=== PATIENT | female | born 1990 | race Caucasian/White ===

== ENCOUNTER 2017-03-20 14:29 | Outpatient (CLI) | payer MEDICAID ==
[~2017-03-20] VITALS: Ht 152.4 cm; Wt 59.5 kg
[~2017-03-20 14:29] MED LIST: FERR27TA; PREN1TAB49
[2017-03-20 14:51] VITALS: BP 103/63; PULSE 99; RESP 18; Ht 152.4 cm; Wt 59.5 kg
--- NOTE | 2017-03-20 15:38 | RADRPT ---
PROCEDURE: US OB biophysical profile. CLINICAL INDICATION: Decreased movements. Pelvic pain. TECHNIQUE: Multiple sonographic images of the pelvis were obtained. The images were reviewed on a PACS workstation. COMPARISON: None FINDINGS: There is a viable intrauterine gestation. There is a normal amount of amniotic fluid with an FÉLIX = 13.5 cm. Cardiac activity is present with 141 beats per minute. The placenta is right fundal. No evidence of placenta previa or abruption. Biophysical profile: movement 2/2 tone 2/2. breathing 2/2 FÉLIX 2/2 Total 12/19 IMPRESSION: Normal biophysical profile. Estimated gestational age: 34 weeks and 1 day RPTAT:AAJJ Physician Samantha Date Time Electronically viewed and signed by Physician Samantha on 03/20/2017 15:38 /
--- NOTE | 2017-03-20 15:41 | RADRPT ---
PROCEDURE: US OB. CLINICAL INDICATION: labor. TECHNIQUE: Multiple sonographic images of the pelvis were obtained. The images were reviewed on a PACS workstation. COMPARISON: No prior studies are available for comparison. FINDINGS: There is a single viable intrauterine gestation. Cardiac activity is present with 148 beats per min qagan tayagungin. Measurements were made in order to determine age. The results are as follows: BPD =8.4 cm HC =30.8 cm AC =29.7 cm FL =6.7 cm. Estimated gestational age of approximately 34 weeks and 0 days. The EFW = 1306 g . Limited by positioning. Visualized structures are normal. The placenta is right fundal. There is no evidence for an abruption or placenta previa. There is a normal amount of amniotic fluid with an FÉLIX = 13.5. IMPRESSION: Single viable intrauterine gestation of approximately 34 weeks and 0 days. RPTAT:AAJJ Physician Samantha Date Time Electronically viewed and signed by Physician Samantha on 03/20/2017 15:40 /
--- NOTE | 2017-03-20 15:41 | RADRPT ---
PROCEDURE: US OB. CLINICAL INDICATION: labor. TECHNIQUE: Multiple sonographic images of the pelvis were obtained. The images were reviewed on a PACS workstation. COMPARISON: No prior studies are available for comparison. FINDINGS: There is a single viable intrauterine gestation. Cardiac activity is present with 148 beats per min mi'kmaq. Measurements were made in order to determine age. The results are as follows: BPD =8.4 cm HC =30.8 cm AC =29.7 cm FL =6.7 cm. Estimated gestational age of approximately 34 weeks and 0 days. The EFW = 1306 g . Limited by positioning. Visualized structures are normal. The placenta is right fundal. There is no evidence for an abruption or placenta previa. There is a normal amount of amniotic fluid with an FÉLIX = 13.5. IMPRESSION: Single viable intrauterine gestation of approximately 34 weeks and 0 days. RPTAT:AAJJ Physician Samantha Date Time Electronically viewed and signed by Physician Samantha on 03/20/2017 15:40 /
--- NOTE | 2017-03-20 15:41 | RADRPT ---
PROCEDURE: US OB. CLINICAL INDICATION: labor. TECHNIQUE: Multiple sonographic images of the pelvis were obtained. The images were reviewed on a PACS workstation. COMPARISON: No prior studies are available for comparison. FINDINGS: There is a single viable intrauterine gestation. Cardiac activity is present with 148 beats per min zuni. Measurements were made in order to determine age. The results are as follows: BPD =8.4 cm HC =30.8 cm AC =29.7 cm FL =6.7 cm. Estimated gestational age of approximately 34 weeks and 0 days. The EFW = 1306 g . Limited by positioning. Visualized structures are normal. The placenta is right fundal. There is no evidence for an abruption or placenta previa. There is a normal amount of amniotic fluid with an FÉLIX = 13.5. IMPRESSION: Single viable intrauterine gestation of approximately 34 weeks and 0 days. RPTAT:AAJJ Physician Samantha Date Time Electronically viewed and signed by Physician Samantha on 03/20/2017 15:40 /
--- NOTE | 2017-03-20 15:55 | PN ---
Triage Information Date/Time Reason for visit: Abd/pelvic pain Weeks of Gestation 34 weeks 1 day /Para Diabetes: none Hypertention: none Objective Vital Signs Date Time Temp Pulse Resp B/P Pulse Ox O2 Delivery O2 Flow Rate FiO2 03/20/17 14:51 99.1 99 18 103/63 97 Room Air Heart Rate: 130's Contractions: None Exam Patient came to triage with complaint of right lower quadrant pain since patient had appendectomy at age 11 the alternative cause of right lower quadrant pain was possible round ligament syndrome, after resting in triage unit pain disappeared patient discharged home with follow-up recommendation at [facility] Results/Medications Result Diagram: 03/20/17 1522 Results 24 hrs Laboratory Tests Test 03/20/17 15:22 White Blood Count 10.9 H Red Blood Count 3.49 L Hemoglobin 8.5 L Hematocrit 26.9 L Mean Corpuscular Volume 77.1 L Mean Corpuscular Hemoglobin 24.4 L Mean Corpuscular Hemoglobin Concent 31.6 L Red Cell Distribution Width 14.4 Platelet Count 290 Mean Platelet Volume 11.0 H Neutrophils % 72.9 Lymphocytes % 17.5 Monocytes % 6.4 Eosinophils % 2.0 Basophils % 0.4 Nucleated Red Blood Cells % 0.0 Neutrophils # 7.9 H Lymphocytes # 1.9 Monocytes # 0.7 Eosinophils # 0.2 Basophils # 0.0 Nucleated Red Blood Cells # 0.0 Disposition: Discharge ADNERSON RICHARDS MD Mar 20, 2017 15:55
--- NOTE | 2017-03-20 15:55 | PN ---
Triage Information Date/Time Reason for visit: Abd/pelvic pain Weeks of Gestation 34 weeks 1 day /Para Diabetes: none Hypertention: none Objective Vital Signs Date Time Temp Pulse Resp B/P Pulse Ox O2 Delivery O2 Flow Rate FiO2 03/20/17 14:51 99.1 99 18 103/63 97 Room Air Heart Rate: 130's Contractions: None Exam Patient came to triage with complaint of right lower quadrant pain since patient had appendectomy at age 11 the alternative cause of right lower quadrant pain was possible round ligament syndrome, after resting in triage unit pain disappeared patient discharged home with follow-up recommendation at [facility] Results/Medications Result Diagram: 03/20/17 1522 Results 24 hrs Laboratory Tests Test 03/20/17 15:22 White Blood Count 10.9 H Red Blood Count 3.49 L Hemoglobin 8.5 L Hematocrit 26.9 L Mean Corpuscular Volume 77.1 L Mean Corpuscular Hemoglobin 24.4 L Mean Corpuscular Hemoglobin Concent 31.6 L Red Cell Distribution Width 14.4 Platelet Count 290 Mean Platelet Volume 11.0 H Neutrophils % 72.9 Lymphocytes % 17.5 Monocytes % 6.4 Eosinophils % 2.0 Basophils % 0.4 Nucleated Red Blood Cells % 0.0 Neutrophils # 7.9 H Lymphocytes # 1.9 Monocytes # 0.7 Eosinophils # 0.2 Basophils # 0.0 Nucleated Red Blood Cells # 0.0 Disposition: Discharge ANDERSON RICHARDS MD Mar 20, 2017 15:55
--- NOTE | 2017-03-20 15:56 | TRIAGE ---
OB Triage Datetime Report Generated by CPN: 03/20/2017 15:56 Datetime: 03/20/2017 15:45 Stage of : OB Triage Maternal Assessment Level of Consciousness: Fully Conscious Labor Evaluation Frequency: 1UC/HR Monitor Mode: External Duration (sec)2399: 60 Quality: Mild Resting Tone [place]: Relaxed Heart Rate FHR Baseline Rate: 135 Monitor Mode: External US Variability: Moderate 6-25 bpm Accelerations: 15X15 Decelerations: None Category: Category I Pain Assessment Pain Scale: 0 Pain Goal: 3 Vaginal Exam Membrane Status: Intact Vaginal Bleeding: None Datetime: 03/20/2017 15:30 Monitor Mode: External Monitor Mode: External US Datetime: 03/20/2017 14:49 Assessment Type: Triage Maternal Assessment Level of Consciousness: Fully Conscious DTR's/Clonus: DTRs 2+; No Clonus Headache: Denies Blurred Vision: No Respiratory Effort: Unlabored; Regular Rhythm; Equal Expansion Breath Sounds, Left: Clear and Equal Breath Sounds, Right: Clear and Equal Nausea/Vomiting: Denies RUQ Epigastric Pain: Denies Lower Extremities Edema: None Degree: None Upper Extremities Edema: None Degree: None Facial Edema: None Fall Risk Assessment History of Falling: (0) No Secondary Diagnosis: (0) No Ambulatory Aid: (0) Bedrest/Nurse Assist IV Therapy: (0) No Gait: (0) Normal/Bedrest/Immobile Mental Status: (0) Oriented to Own Ability Fall Score: 0 Fall Risk Score Definition: No Risk: No action required Datetime: 03/20/2017 14:48 EGA: 34.1 Datetime: 03/20/2017 14:47 Time of Arrival: 03/20/2017 14:27 Arrived By: Ambulatory Arrived From: Home Chief Complaint: PT HERE C/O RLQ ABDOMINAL PAIN Movement: Present Contractions: Denies/Absent Rupture of Membranes: Denies Vaginal Bleeding: None Vaginal Discharge: Denies Recent Sexual Intercouse: Denies Abdominal Trauma: Not Applicable Patient Complaints: None Time Provider Notified: 03/20/2017 15:04 Provider Notified: [facility] Initial Plan: CBC, BPP, EFW Datetime: 03/20/2017 14:43 Monitor Mode: External Monitor Mode: External US
== END 2017-03-20 16:05 | disposition home or self-care (01) ==
LOC: OBT 14:29 → L-D 14:29 → OBT 16:05
PROVIDERS: ATTEND Obstetrics & Gynecology
DX: O26.893 Other specified pregnancy related conditions, third trimester (principal); Z3A.34 34 weeks gestation of pregnancy; R10.31 Right lower quadrant pain
CPT/HCPCS: 36415; 76815; 76818; 85025; Z7500; G0463

== ENCOUNTER 2017-04-15 16:12 | Outpatient (CLI) | payer MEDICAID ==
[~2017-04-15] VITALS: Ht 175.3 cm; Wt 61.4 kg
[~2017-04-15 16:12] MED LIST changes: -FERR27TA
[2017-04-15 16:31] VITALS: BP 106/70; PULSE 96; RESP 19; Ht 175.3 cm; Wt 61.4 kg
[2017-04-15 16:36] LABS: URINE BLOOD (Dip) POC Negative (NEGATIVE)
--- NOTE | 2017-04-15 17:05 | RADRPT ---
PROCEDURE: Obstetrical ultrasound for biophysical profile CLINICAL INDICATION: Biophysical profile. . TECHNIQUE: Obstetrical ultrasound of the uterus for biophysical profile. Transabdominal views are obtained. COMPARISON: US PELVIS 03/20/2017 FINDINGS: Single intrauterine gestation. Presentation: Cephalic. Placenta: Anterior. No evidence of placental abruption. No evidence of placenta previa. breathing movement = 2/2 tone = 2/2 motion = 2/2 FÉLIX = 2/2 FÉLIX = 13.9 cm heart rate: 144 beats per minute IMPRESSION: Single intrauterine gestation. Biophysical profile 12/19 RPTAT: AADD .Froylan Mota MD, MD Date Time Electronically viewed and signed by .Froylan Mota MD, on 04/15/2017 17:05 .B/
--- NOTE | 2017-04-15 17:40 | CONS ---
Date/Time of Note Date/Time of Note DATE: 04/15/17 TIME: 17:26 Consultation Date/Type/Reason Admit Date/Time April 15, 2017 OB triage consult This patient is a 26 years old 3 para 1 1 living 1 who had an spontaneous vaginal delivery for her first . Her estimated date of confinement April 30, 2017 which makes her 37 weeks and 6 days today. She came to triage due to cough for about a week which is worsening with flem and vomiting. On examination she is a well-developed well-nourished at term. Her general vital signs appear to be normal with blood pressure 106/70 ,pulse rate 96, respiration 18, and temperature of 99.3 her abdomen is soft infrequent contraction heart tone is normal except . The NST is reactive with fairly good variability and occasional acceleration no decelerations. Reason for Consultation Laboratory Tests Test 04/15/17 16:36 Bedside Urine pH (LAB) 6.5 Bedside Urine Protein (LAB) 1+ Bedside Urine Glucose (UA) Negative Bedside Urine Ketones (LAB) Negative Bedside Urine Blood Negative Bedside Urine Nitrite (LAB) Negative Bedside Urine Leukocyte Esterase (L 1+ Constitutional: chills, diaphoresis, disoriented, febrile, improved, no complaints, other (As I mentioned temperature is 99.3), poor po, requiring IVF, requiring O2 Eyes: No discharge, No no complaints, No other, No pain, No redness, No visual change ENT: No bleeding, No congestion, No discharge, No dysphagia, No no complaints, No other, No pain, No sore throat Respiratory: cough (Coughing which is a tongue productive but no blood), No no complaints, No other, No pain, No pleuritic pain, No shortness of breath, No sputum, No wheezing Cardiovascular: No chest pain, No edema, No lightheadedness, No no complaints, No orthopenea, No other, No palpitations, No paroxysmal nocturnal dyspnea Gastrointestinal: vomiting (She vomited couple times mostly due to cough), No blood, No constipation, No decreased appetite, No diarrhea, No flatus, No nausea, No no complaints, No other, No pain, No passing stool Genitourinary: other (Due to lack of contractions no pelvic exam was performed) , No bleeding, No discharge, No dysuria, No flank pain, No hematuria, No no complaints Musculoskeletal: other (Slight general body ache), No back pain, No bone/joint pain, No neck pain, No no complaints, No restricted range of motion, No swelling Neurologic: No confusion, No dizziness, No focal-weakness, No headache, No no complaints, No other, No seizure, No syncope Endocrine: No dry skin, No no complaints, No other, No polydypsia, No polyuria , No temp intolerance Additional Comments . . On ultrasound study report is single intrauterine gestation placenta anterior no placenta abruption or previa amniotic fluid index is 13.9 cm her biophysical profile was 8/ Disposition; with these normal finding for her she was sent down to emergency room for further evaluation and treatment of possible upper respiratory tract infection Social History Smoking Status: Never smoker Exam/Review of Systems Vital Signs Vitals Vital Signs Date Time Temp Pulse Resp B/P Pulse Ox O2 Delivery O2 Flow Rate FiO2 04/15/17 16:31 99.3 96 19 106/70 99 Room Air Results Results 24 hrs Laboratory Tests Test 04/15/17 16:36 Bedside Urine pH (LAB) 6.5 Bedside Urine Protein (LAB) 1+ H Bedside Urine Glucose (UA) Negative Bedside Urine Ketones (LAB) Negative Bedside Urine Blood Negative Bedside Urine Nitrite (LAB) Negative Bedside Urine Leukocyte Esterase (L 1+ H RADHA GORDON MD Apr 15, 2017 17:37
[2017-04-15] MEDS ORDERED: AZIT250T94 PO (18:49)
== END 2017-04-15 17:26 | disposition home or self-care (01) ==
LOC: OBT 16:12 → L-D 16:13 → OBT 17:26
PROVIDERS: ATTEND Obstetrics & Gynecology
DX: O21.0 Mild hyperemesis gravidarum (principal); O26.893 Other specified pregnancy related conditions, third trimester; R05 Cough; Z3A.37 37 weeks gestation of pregnancy
CPT/HCPCS: 76818; 81003; Z7500; G0463

== ENCOUNTER 2017-04-15 17:32 | Emergency (ER) | payer MEDICAID ==
[~2017-04-15] VITALS: Ht 152.4 cm; Wt 61.5 kg
[2017-04-15 17:33] VITALS: Ht 152.4 cm; Wt 61.5 kg
[2017-04-15] MEDS ORDERED: AZIT250T94 PO (18:49)
--- NOTE | 2017-04-15 18:52 | ERD ---
ER Documentation Chief Complaint Chief Complaint CLEARED BY OB TRIAGE -- FLU LIKE SYMPTOMS HPI This 26-year-old female presents with a cough and congestion worsening over the last week of productive mucus. She denies fevers. She denies any chest pain or shortness of breath. She is 37 weeks and was cleared by labor and delivery. She denies abdominal pain or vaginal bleeding. ROS All systems reviewed and are negative except as per history of present illness. Medications Home Meds Active Scripts Azithromycin* (Zithromax*) 250 Mg Tablet, 250 MG PO .ZPACK DIRECTED, #6 TAB TAKE 500 MG (2 TABS) THE FIRST DAY THEN 250 MG (1 TAB) DAYS 2-5 Prov:FIORELLA YOU MD 04/15/17 Reported Medications Vits W-Ca,Fe,Fa(<1MG) () 1 Tab Tablet 04/28/10 Allergies Allergies: Coded Allergies: No Known Drug Allergy (Verified Allergy, Unknown, 04/15/17) Uncoded Allergies: NOT KNOWN ALLERGIES (Allergy, Unknown, 04/28/10) Physical Exam Vitals Vital Signs Date Time Temp Pulse Resp B/P Pulse Ox O2 Delivery O2 Flow Rate FiO2 04/15/17 17:33 98.4 98 17 106/68 100 Physical Exam Const: [] Alert, [id number]. Head: Atraumatic Eyes: Normal Conjunctiva ENT: Normal External Ears, Nose and Mouth. TMs and oropharynx normal. Neck: Full range of motion..~ No meningismus. Resp: Clear to auscultation bilaterally Cardio: Regular rate and rhythm, no murmurs Abd: Soft, non tender, non distended. Normal bowel sounds Skin: No petechiae or rashes Back: No midline or flank tenderness Ext: No cyanosis, or edema Neur: Awake and alert Psych: Normal Mood and Affect Procedures/MDM Patient presents with worsening productive cough over the last week. There is no signs of hypoxemia or respiratory distress. Given the worsening productive cough, recommendations for [id number] cough syrup and Tylenol. There is no complications of appreciated. She will discharged home with primary care follow-up and return precautions. The patient was stable with no new complaints during the ER course. Clinically, there is no current evidence to suggest meningitis, sepsis, acute abdomen, pneumonia, acute coronary syndrome , pulmonary embolism, or any other emergent condition appearing to require further evaluation or hospitalization. The patient should certainly return for any new or worsening symptoms per the aftercare instructions. They should otherwise follow-up with her primary care doctor for reevaluation this week. Departure Diagnosis: Primary Impression: Upper respiratory infection URI type: unspecified URI Qualified Code: J06.9 - Upper respiratory tract infection, unspecified type Condition: Stable Patient Instructions: Bronchitis, Antiobiotic Treatment (Adult) Additional Instructions: Okay to take Tylenol for pain. Recheck for new or worsening symptoms or primary care doctor. FIORELLA YOU MD Apr 15, 2017 18:52
== END 2017-04-15 18:54 | disposition home or self-care (01) ==
LOC: FTE 17:32
DX: O99.513 Diseases of the respiratory system complicating pregnancy, third trimester (principal); J06.9 Acute upper respiratory infection, unspecified; Z3A.37 37 weeks gestation of pregnancy
CPT/HCPCS: 99283

== ENCOUNTER 2017-05-02 13:10 | Inpatient (IN) | payer MEDICAID ==
[~2017-05-02] VITALS: Ht 152.4 cm; Wt 62.9 kg
[~2017-05-02 13:10] MED LIST changes: +AZIT250T94 PO
[2017-05-02] MEDS: LACTATED RINGER'S 1,000 ML IV SCH ×4 (13:30→22:28)
[2017-05-02 13:46] VITALS: Ht 152.4 cm; Wt 62.9 kg
[2017-05-02 13:47] VITALS: BP 115/70; PULSE 129; RESP 20
[2017-05-02] MEDS ORDERED: CARBOPROST 250 MCG INJ IM PRN (14:00)
[2017-05-02] MEDS ORDERED: OXYTOCIN 30 UNITS/LR 500 ML IV SCH ×5 (14:00→16:30)
[2017-05-02] MEDS ORDERED: MISOPROSTOL 200 MCG TAB PR PRN (14:00)
[2017-05-02] MEDS ORDERED: HYDROCODONE/APAP (5/325) TAB PO PRN (14:00)
[2017-05-02] MEDS ORDERED: OXYTOCIN 30 UNITS/LR 500 ML IV PRN (14:00)
[2017-05-02] MEDS ORDERED: AZITHROMYCIN 500MG/NS (PMX) 250 ML IVPB ONE (14:00)
[2017-05-02] MEDS ORDERED: AMPICILLIN 2 GM/NS (PMX) 100 ML IV ONE (14:00)
[2017-05-02] MEDS ORDERED: BUTORPHANOL 2 MG INJ IV PRN ×2 (14:00)
[2017-05-02] MEDS ORDERED: IBUPROFEN 600 MG TAB PO PRN (14:00)
[2017-05-02] MEDS ORDERED: LIDOCAINE 1% (MPF) 30 ML INJ INJ PRN (14:00)
[2017-05-02] MEDS ORDERED: METHYLERGONOVINE 0.2 MG INJ IM PRN (14:00)
[2017-05-02 14:26] LABS: ABNORMAL IP MESSAGE 1; BASOPHILS % 0.3 % (0.0-2.0); EOSINOPHILS % 0.5 % (0.0-7.0); HEMATOCRIT 29.1 % (37.0-47.0); HEMOGLOBIN 9.1 g/dl (12.0-16.0); LYMPHOCYTES # 0.5 10^3/ul (0.8-2.9); LYMPHOCYTES % 6.2 % (15.0-51.0); MEAN CORPUSCULAR HEMOGLOBIN 22.2 pg (29.0-33.0); MEAN CORPUSCULAR HGB CONC 31.3 g/dl (32.0-37.0); MEAN PLATELET VOLUME 11.5 fl (7.4-10.4); MONOCYTE # 0.7 10^3/ul (0.3-0.9); MONOCYTES % 7.5 % (0.0-11.0); NEUTROPHIL # 7.3 10^3/ul (1.6-7.5); NEUTROPHILS % 83.9 % (39.0-77.0); PLATELET COUNT 240 10^3/UL (140-415); RED CELL DISTRIBUTION WIDTH 17.6 % (11.5-14.5); WHITE BLOOD COUNT 8.7 10^3/ul (4.8-10.8)
--- NOTE | 2017-05-02 14:36 | TRIAGE ---
OB Triage Datetime Report Generated by CPN: 05/02/2017 14:36 Datetime: 05/02/2017 14:31 Labor Evaluation Frequency: irreg Monitor Mode: External Duration (sec)2399: 50-100 Quality: Moderate Pattern: Normal: <= 5 Contractions in 10 Minutes Resting Tone [place]: Relaxed Heart Rate FHR Baseline Rate: 155 Monitor Mode: External US Variability: Moderate 6-25 bpm Accelerations: 15X15 Decelerations: Late Category: Category I Datetime: 05/02/2017 14:22 Membrane Status: Meconium Datetime: 05/02/2017 13:30 Stage of : OB Triage Assessment Type: Triage Maternal Assessment Level of Consciousness: Fully Conscious DTR's/Clonus: DTRs 2+; No Clonus Headache: Denies Blurred Vision: No Respiratory Effort: Unlabored; Regular Rhythm; Equal Expansion Breath Sounds, Left: Clear and Equal Breath Sounds, Right: Clear and Equal Nausea/Vomiting: Denies RUQ Epigastric Pain: Denies Lower Extremities Edema: None Degree: None Upper Extremities Edema: None Degree: None Facial Edema: None Temperature Route: Axillary Fall Risk Assessment History of Falling: (0) No Secondary Diagnosis: (0) No Ambulatory Aid: (0) Bedrest/Nurse Assist IV Therapy: (0) No Gait: (0) Normal/Bedrest/Immobile Mental Status: (0) Oriented to Own Ability Fall Score: 0 Fall Risk Score Definition: No Risk: No action required Datetime: 05/02/2017 13:20 Vaginal Exam Dilatation (cms): 1.0 Effacement (%): 70 Station: -4 Exam By: oGBODU Membrane Status: Meconium Membranes Rupture Method: Spontaneous Amniotic Fluid Color: Light Meconium Amniotic Fluid Amount: Small Vaginal Bleeding: Normal Show Cervix, Consistency: Soft Presentation 'A': Cephalic Datetime: 05/01/2017 13:52 Time of Arrival: 05/02/2017 13:04 EGA: 40.2 Arrived By: Ambulatory Arrived From: Home Chief Complaint: SROM AT 1230PM Movement: Present Contractions: Irregular Rupture of Membranes: Ruptured Vaginal Bleeding: None Vaginal Discharge: Denies Recent Sexual Intercouse: Denies Abdominal Trauma: Not Applicable Time Provider Notified: 05/02/2017 13:30 Provider Notified: dR. Marquez Initial Plan: SVE, Datetime: 04/15/2017 17:22 Stage of : OB Triage Maternal Assessment Level of Consciousness: Fully Conscious DTR's/Clonus: DTRs 1+ Headache: Denies Breath Sounds, Left: Clear and Equal Breath Sounds, Right: Clear and Equal Nausea/Vomiting: Denies RUQ Epigastric Pain: Denies Labor Evaluation Frequency: NONE Monitor Mode: External Resting Tone [place]: Relaxed Heart Rate FHR Baseline Rate: 135 Variability: Moderate 6-25 bpm Accelerations: 15X15 Decelerations: None Category: Category I Pain Assessment Pain Scale: 0 Pain Presence: None/Denies Pain Type: N/A Pain Goal: 3 Membrane Status: Intact Datetime: 04/15/2017 17:18 Comments: NST DONE AND REACTIVE BPP 818 FÉLIX 13.9CM VTX Datetime: 04/15/2017 16:49 Maternal Assessment Level of Consciousness: Fully Conscious DTR's/Clonus: DTRs 1+ Headache: Denies Blurred Vision: No Respiratory Effort: Unlabored Breath Sounds, Left: Clear and Equal Breath Sounds, Right: Clear and Equal Nausea/Vomiting: Denies RUQ Epigastric Pain: Denies Facial Edema: 1+ Labor Evaluation Frequency: NONE Monitor Mode: External Resting Tone [place]: Relaxed Heart Rate FHR Baseline Rate: 135 Variability: Moderate 6-25 bpm Accelerations: 15X15 Decelerations: None Category: Category I Pain Assessment Pain Scale: 0 Pain Presence: None/Denies Pain Type: N/A Pain Goal: 3 Membrane Status: Intact Datetime: 04/15/2017 16:23 Assessment Type: Triage Maternal Assessment Level of Consciousness: Fully Conscious DTR's/Clonus: DTRs 2+; No Clonus Headache: Denies Blurred Vision: No Respiratory Effort: Unlabored; Regular Rhythm; Equal Expansion Breath Sounds, Left: Clear and Equal Breath Sounds, Right: Clear and Equal Nausea/Vomiting: Denies RUQ Epigastric Pain: Denies Lower Extremities Edema: None Degree: None Upper Extremities Edema: None Degree: None Facial Edema: None Fall Risk Assessment History of Falling: (0) No Secondary Diagnosis: (0) No Ambulatory Aid: (0) Bedrest/Nurse Assist IV Therapy: (0) No Gait: (0) Normal/Bedrest/Immobile Mental Status: (0) Oriented to Own Ability Fall Score: 0 Fall Risk Score Definition: No Risk: No action required Datetime: 04/15/2017 16:10 Time of Arrival: 04/15/2017 16:10 EGA: 37.6 Arrived By: Wheelchair Arrived From: Home Chief Complaint: PT CAME IN C/O VOMITTING DUE TO HER COUGH THAT SHE HAS BEEN HAVING FOR ABOUT 1 1/ 2 WEEK. THE FLEM IS MAKING HER NAUSEATED AND SHE STARTS VOMITTING. SHE HAS BEEN ABLE TO HOLD HER HYEDI D TODAY. STATES FEELING BABY MOVEMENTS AND DENIES HAVING UC'S AT THIS TIME Movement: Present Contractions: Denies/Absent Rupture of Membranes: Denies Vaginal Bleeding: None Vaginal Discharge: Denies Recent Sexual Intercouse: Denies Abdominal Trauma: Not Applicable Patient Complaints: Cough Additional Patient Complaints: NONE Time Provider Notified: 04/15/2017 16:27 Provider Notified: EVAN Initial Plan: MONITOR, NST AND BPP Datetime: 03/20/2017 14:49 Fall Score: 0 Fall Risk Score Definition: No Risk: No action required Datetime: 03/20/2017 14:48 EGA: 34.1
[2017-05-02 14:41] LABS: INR 0.87; PROTIME 11.9 Sec (11.9-14.9); PT RATIO 0.9
[2017-05-02 14:42] LABS: PARTIAL THROMBOPLASTIN TIME 29.6 Sec (25.0-35.0)
[2017-05-02 14:43] LABS: ALBUMIN 3.2 g/dl (3.3-4.9); ALBUMIN/GLOBULIN RATIO 0.91; BILIRUBIN,INDIRECT 0.3 mg/dl (0-1.1); BILIRUBIN,TOTAL 0.3 mg/dl (0.2-1.3); CALCIUM 8.5 mg/dl (8.4-10.2); CREATININE 0.46 mg/dl (0.44-1.00); TOTAL PROTEIN 6.7 g/dl (6.1-8.1)
--- NOTE | 2017-05-02 15:09 | RADRPT ---
PROCEDURE: Obstetrical ultrasound. CLINICAL INDICATION: , evaluation. Pelvic pain. Intrauterine growth restriction. Ru pture of membranes TECHNIQUE: Transabdominal sonographic images of the uterus obtained after first trimester , greater than 14 weeks gestation. Single intrauterine gestation present. COMPARISON: MG 05/01/2017; US PELVIS 04/15/2017 FINDINGS: Single intrauterine gestation. There is a cephalic presentation. Measurements were made in order to determine age. The results are as follows: BPD = 39 weeks 6 day(s) HC = 39 weeks 6 day(s) AC = 39.92 cm, out of range FL = 39 weeks 6 day(s) FÉLIX = not measured; apparent oligohydramnios. Heart rate = 165 beats per minute The placenta is anterior. There is no evidence for an abruption or placenta previa. Ovaries are not visualized. IMPRESSION: Single intrauterine gestation of approximately 39 weeks 6 days by ultrasound criteria. [place] estimated weight = 4619 g; >97 percentile for gestational age of 40 weeks 2 days. RPTAT: AADD .Froylan Mota MD, MD Date Time Electronically viewed and signed by .Froylan Mota MD, on 05/02/2017 15:09 .B/
--- NOTE | 2017-05-02 15:10 | RADRPT ---
PROCEDURE: US OB biophysical profile. CLINICAL INDICATION: decreased movements, IUGR TECHNIQUE: Multiple sonographic images of the pelvis were obtained. The images were reviewed on a PACS workstation. COMPARISON: US PELVIS 04/15/2017 FINDINGS: There is a single viable intrauterine gestation. Cardiac activity is present with 156 beats per min viejas. There is a vertex presentation. The placenta is anterior. There is no evidence of placental abruption. There is a decreased amount of amniotic fluid with an FÉLIX = 6.1 cm. Biophysical profile: movement 2/2 tone 2/2. breathing 2/2 FÉLIX 2/2 Total 12/19 RPTAT: AA . IMPRESSION: Normal biophysical profile. Oligohydramnios. . .Ishan Cuevas MD, Date Time Electronically viewed and signed by .Ishan Cuevas MD, on 05/02/2017 15:09 .S/
[2017-05-02] MEDS ORDERED: CEFAZOLIN 2 GM/50 ML (PMX) 50 ML IV SCH (16:00)
--- NOTE | 2017-05-02 16:34 | RADRPT ---
PROCEDURE: US OB. CLINICAL INDICATION: Post dates TECHNIQUE: Multiple sonographic images of the pelvis were obtained. The images were reviewed on a PACS workstation. COMPARISON: 05/02/2017 FINDINGS: There is a single viable intrauterine gestation. Cardiac activity is present with 156 beats per min brett. There is a cephalic presentation. Measurements were made in order to determine age. The results are as follows: BPD =9.19 cm HC =32.24 cm AC =37.21 cm FL =7.44 cm. Estimated gestational age of approximately 30 weeks 2 days. The estimated date of delivery is 05/14/2017. The EFW = 3786 g 59.9% . The placenta is anterior grade II. There is no evidence for an abruption There is a normal amount of amniotic fluid IMPRESSION: Single viable intrauterine gestation of approximately 38 weeks 2 days. The estimated date of delive ry is 05/14/2017 . .Berry Lang MD, Date Time Electronically viewed and signed by .Berry Lang MD, MD on 05/02/2017 16:34 .W/
[2017-05-02] MEDS ORDERED: DIPHENHYDRAMINE 50 MG INJ IV PRN (18:30)
[2017-05-02] MEDS ORDERED: ONDANSETRON 4 MG INJ IV PRN (18:30)
[2017-05-02] MEDS ORDERED: FENTAnyl 2MCG/ML-ROPIV 0.2% 100 ML BAG EPI SCH (18:30)
[2017-05-02] MEDS ORDERED: NALOXONE (0.4 MG/ML) INJ IV PRN (18:30)
[2017-05-02] MEDS ORDERED: ACETAMINOPHEN 325 MG TAB PO PRN (19:30)
[2017-05-02] MEDS: AMPICILLIN 1 GM/NS (PMX) 50 ML IVPB SCH ×2 (20:03→21:00)
[2017-05-02] MEDS ORDERED: GENTAMICIN 120 MG/NS (PMX) 100 ML IVPB ONE (21:30)
[2017-05-02 22:26] LABS: BASOPHILS % 0.4 % (0.0-2.0); EOSINOPHILS % 0.2 % (0.0-7.0); HEMATOCRIT 29.7 % (37.0-47.0); HEMOGLOBIN 9.2 g/dl (12.0-16.0); LYMPHOCYTES # 0.7 10^3/ul (0.8-2.9); LYMPHOCYTES % 7.7 % (15.0-51.0); MEAN CORPUSCULAR HEMOGLOBIN 22.2 pg (29.0-33.0); MEAN CORPUSCULAR VOLUME 71.6 fl (82.0-101.0); MEAN PLATELET VOLUME 10.9 fl (7.4-10.4); MONOCYTE # 0.7 10^3/ul (0.3-0.9); MONOCYTES % 7.8 % (0.0-11.0); NEUTROPHIL # 7.4 10^3/ul (1.6-7.5); NEUTROPHILS % 82.5 % (39.0-77.0); PLATELET COUNT 225 10^3/UL (140-415); RED BLOOD COUNT 4.15 10^6/ul (4.20-5.40); RED CELL DISTRIBUTION WIDTH 17.4 % (11.5-14.5)
[2017-05-02 22:35] LABS: ALBUMIN 2.9 g/dl (3.3-4.9); ALBUMIN/GLOBULIN RATIO 0.85; BILIRUBIN,INDIRECT 0.3 mg/dl (0-1.1); BILIRUBIN,TOTAL 0.3 mg/dl (0.2-1.3); CALCIUM 8.2 mg/dl (8.4-10.2); CREATININE 0.5 mg/dl (0.44-1.00); POTASSIUM 3.7 mmol/L (3.5-5.1); TOTAL PROTEIN 6.3 g/dl (6.1-8.1)
[2017-05-03] MEDS ORDERED: ACETAMINOPHEN 325 MG TAB PO ONE (00:30)
[2017-05-03] MEDS: LACTATED RINGER'S 1,000 ML IV* SCH ×3 (00:56→16:56)
--- NOTE | 2017-05-03 00:56 | LDN ---
Date/Time of Note Date/Time of Note DATE: 05/03/17 TIME: 00:52 Delivery Summary 05/03/2017 Weeks of Gestation 40 + weeks. Due to ineffective maternal pushing effects and decerations in second stage of labor, Vaccum applied after discussion with parents about risks and benefits Patient had intrapartum tachycardia while was being induced with pitocin due to SROM. On Ampicillin and Gentamycin Assisted Vaginal Delivery: Vacuum Placenta Delivered: Spontaneously Meconium: none Episiotomy: No Laceration repair: first degree right and left labia minora lacerations repaired using 3-0 chromic Anesthesia type: Epidural Estimated blood loss: 500 Sponge & Needle done & correct: Yes All needle counts correct: Yes Any foreign bodies felt in the: No Problems: Delivery Information Sex Sex: female Apgars 1 Minute: 8 5 Minute: 8 10 Minute: 9 Suctioning Nose & mouth suctioned at nuria: Yes Delee suction performed: Yes Umbilical Cord Umbilical cord with: 3 Vessels Cord presentations: no nuchal cord Cord Blood was obtained: Yes AUTUMN NASH MD May 03, 2017 00:56
[2017-05-03] MEDS ORDERED: WITCH HAZEL/GLYCERIN PAD PR PRN (01:00)
[2017-05-03] MEDS ORDERED: MISOPROSTOL 200 MCG TAB PR PRN ×2 (01:00→01:30)
[2017-05-03] MEDS ORDERED: ONDANSETRON 4 MG INJ IV PRN (01:00)
[2017-05-03] MEDS ORDERED: HYDROCODONE/APAP (5/325) TAB PO PRN (01:00)
[2017-05-03] MEDS ORDERED: OXYTOCIN 30 UNITS/LR 500 ML IV PRN (01:00)
[2017-05-03] MEDS ORDERED: DIPHENHYDRAMINE 25 MG CAP PO PRN (01:00)
[2017-05-03] MEDS ORDERED: ACETAMINOPHEN 325 MG TAB PO PRN (01:00)
[2017-05-03] MEDS ORDERED: ZOLPIDEM 5 MG TAB PO PRN (01:00)
[2017-05-03] MEDS ORDERED: CARBOPROST 250 MCG INJ IM PRN (01:00)
[2017-05-03] MEDS ORDERED: METHYLERGONOVINE 0.2 MG INJ IM PRN (01:00)
[2017-05-03] MEDS: OXYTOCIN 30 UNITS/LR 500 ML IV SCH ×2 (01:17→09:08)
--- NOTE | 2017-05-03 01:19 | DELSUM ---
Delivery Summary A-C Datetime Report Generated by CPN: 05/03/2017 01:19 DELIVERY PERSONNEL Cyber Engineer: Avilez, Lydia MATERNAL INFORMATION Delivery Anesthesia: Epidural Medications in Delivery: 30 UNITS PITOCIN Estimated Blood Loss (ml): 500 Placenta Cultured: Yes Maternal Complications: Maternal Fever Other Maternal Complications: 100.8 DEGREES F UPON ARRIVAL LABOR SUMMARY EDC: 04/30/2017 00:00 No. Babies in Womb: 1 Attempted: No Labor Anesthesia: Epidural LABOR INFORMATION Reason for Induction: Not Applicable Onset of Labor: 05/02/2017 16:39 Complete Dilatation: 05/03/2017 00:14 Cervical Ripening Agents: Cytotec @ 600 Oxytocin: Augmentation Group B Beta Strep: Negative Group B Beta Strep: Negative Antibiotics # of Doses: 4 Antibiotics Time of Last Dose: 05/02/2017 21:31 Steroids Given: None Reason Steroids Not Administered: Not Applicable MEMBRANES Membranes Rupture Method: Spontaneous Membranes Rupture Method: Spontaneous Rupture of Membranes: 05/02/2017 12:30 Length of Rupture (hr): 12.03 Amniotic Fluid Color: Heavy Meconium Amniotic Fluid Color: Heavy Meconium Amniotic Fluid Amount: Small Amniotic Fluid Amount: Small Amniotic Fluid Odor: None STAGES OF LABOR Stage 1 hr: 7 Stage 1 min: 35 Stage 2 hr: 0 Stage 2 min: 18 Stage 3 hr: 0 Stage 3 min: 7 Total Time in Labor hr: 8 Total Time in Labor min: 0 VAGINAL DELIVERY Episiotomy: None Laceration Extension: First Degree Laceration Type: Perineal Laceration Repair: Yes Initial Vag Sponge Count: 10 Final Vag Sponge Count: 10 Initial Vag Sharps Count: 1 Final Vag Sharps Count: 2 Sharps Count Correct: Yes BABY A INFORMATION Infant Delivery Date/Time: 05/03/2017 00:32 Method of Delivery: Vaginal Method of Delivery: Vaginal Born in Route : No : N/A Forceps: N/A Vacuum Extraction: Successful Shoulder Dystocia : N/A ASSISTED DELIVERY BABY A Indication for Assisted Delivery: BRADYCARDIA/INEFFECTIVE PUSHING Catheter Prior to Procedure: Yes Station Vacuum/Forcep Apply: 1 Vacuum Number of Pulls: 1 Vacuum Number of PopOffs: 0 Vacuum Maximum Pressure Obtained: 700 Reduce Pressure btwn Ctx: No Vacuum Digital Publishing Specialist: KIWI Total Time Vacuum Applied: 45 SECONDS SHOULDER DYSTOCIA BABY A Delivery Date/Time: 05/03/2017 00:32 PRESENTATION/POSITION BABY A Presentation: Cephalic Cephalic Presentation: Vertex Breech Presentation: N/A PLACENTA INFORMATION BABY A Placenta Delivery Time : 05/03/2017 00:39 (Annotations: Data stored by [facility] on behalf of user) Placenta Method of Delivery: Spontaneous Placenta Method of Delivery: Spontaneous Placenta Status: Delivered SCORES BABY A Heart Rate 1 min: >100 bpm Resp Effort 1 min: Good Cry Reflex Irritability 1 min: Cough/Sneeze/Pulls Away Muscle Tone 1 min: Active Motion Color 1 min: Blue/Pale Resuscitation Effort 1 min: Tactile Stimulation; PPV/NCPAP SCORE 1 MIN: 8 Heart Rate 5 min: >100 bpm Resp Effort 5 min: Good Cry Reflex Irritability 5 min: Cough/Sneeze/Pulls Away Muscle Tone 5 min: Active Motion Color 5 min: Blue/Pale Resuscitation Effort 5 min: Tactile Stimulation; PPV/NCPAP SCORE 5 MIN: 8 INFORMATION BABY A Gestational Age at Delivery: 40.2 Gestational Status: Full Term- 39- 40.6 Weeks Outcome : Liveborn Infant Condition : Stable Sex: Female Infant Sex: Female IDENTIFICATION/MEDS BABY A ID Band Number: [id number] ID Band Location: Right Leg; Left Arm Sensor Applied: Yes Sensor Number: [id number] Sensor Location : Cord Clamp Vitamin K Given : Not Given Erythromycin Given: Not Given WEIGHT/LENGTH BABY A Birthweight (gm): 3090 Weight (lb): 6 Infant Weight (oz): 13 Infant Length (in): 18.50 Infant Length (cm): 46.99 CORD INFORMATION BABY A No. Cord Vessels: 3 Nuchal Cord : N/A Cord Blood Taken: Yes Banking/Donate Info: NO Infant Suction: Mouth; Nose ASSESSMENT BABY A Complications: Extended Tachycardi; Multiple Variable Decels; Meconium Physical Findings at Delivery: Within Normal Limits Physical Findings- Other: MATERNAL TEMP ON ADMISSION 100.8 AT 1321 ON 05/02/2017 Respirations: Appears Normal Child Psychology Teacher/ALS Called : No Infant Care By: Nehal [place] Transferred To: Remains with Mother
[2017-05-03 04:00] VITALS: BP 102/68; PULSE 106; RESP 18
[2017-05-03] MEDS: GENTAMICIN 80 MG/NS (PMX) 50 ML IVPB SCH ×3 (05:37→21:58)
[2017-05-03] MEDS ORDERED: GENTAMICIN 80 MG/NS (PMX) 50 ML IVPB SCH (06:00)
[2017-05-03] MEDS: CLINDAMYCIN 900 MG/D5W (PMX) 50 ML IVPB SCH ×3 (06:26→22:37)
[2017-05-03] MEDS: IBUPROFEN 600 MG TAB PO SCH ×4 (06:26→23:51)
[2017-05-03 08:00] VITALS: BP 109/64; PULSE 93; RESP 18
[2017-05-03] MEDS: SENNA/DOCUSATE NA (8.6MG/50MG) TAB PO SCH ×2 (09:05→20:23)
[2017-05-03] MEDS: LANOLIN 7 GM TUBE TOP PRN (09:12)
--- NOTE | 2017-05-03 09:46 | HP ---
Date/Time of Note Date/Time of Note DATE: 05/03/17 TIME: 09:39 OB - History Hx of Present Free Text/Dictation This is a 26 years old female SAB 1 EDC April 30, 2017 admitted to [facility] on May 02, 2017 1304 with complaint of premature rupture of membrane and early labor pelvic examination on admission cervix 1 cm dilated 70% effaced vertex at -3 -4 station patient transferred from triage unit to L&D for labor augmentation and to start antibiotic due to rupture of membrane. Chief Complaint: Premature rupture of membrane early labor Estimated Due Date: Apr 30, 2017 : 3 Para: 1 Spontaneous : 1 Care: Good Care Ultrasounds: Normal mid trimester US Obstetrical Complications: None Past Family/Social History * Past Medical, Surgical, Family and Obstetric Histories reviewed from chart. Rubella: immune RPR/VDRL: Negative GBS Status: Negative HBsAG: Negative OB Admission Exam Vital Signs Vital Signs Vital Signs Date Time Temp Pulse Resp B/P Pulse Ox O2 Delivery O2 Flow Rate FiO2 05/03/17 04:00 100.0 106 18 102/68 Room Air 05/02/17 13:47 99 Physical Exam HEENT: WNL Heart: Rhythm Normal Lungs: Clear, Equal Abdomen: WNL Extremities: Normal Reflexes: Normal Cervical Dilatation: 1cm Effacement: 75% Station: -3 Membranes: Ruptured Amniotic Fluid: Thin Meconium Heart Rate: 130's Accelerations: Accelerations Present Decelerations: Early Decelerations Varibility: Moderate Contractions on Admission: >10 Minutes Apart Intensity: Mild Last 72 hours Lab Results CBC & BMP 05/02/17 13:45 05/02/17 22:01 Liver Function Test 05/02/17 13:45 05/02/17 22:01 Alanine Aminotransferase (ALT/SGPT) 24 24 Albumin 3.2 L 2.9 L Alkaline Phosphatase 238 H 230 H Aspartate Amino Transf (AST/SGOT) 19 19 Direct Bilirubin 0.00 0.00 Total Protein 6.7 6.3 OB Assessment/Plan Reason for admission: other (40 weeks 3 days premature rupture of membrane) Other plan: 26 years old SAB 1 EDC April 30, 2017 admitted at 40 weeks and 3 days with premature rupture of membrane with mild occasional contraction requires labor augmentation, antibiotic coverage due to premature rupture of membranes, labor augmentation with Pitocin IV infusion explained to the patient she agreed to proceed with labor augmentation. ANDERSON RICHARDS MD May 03, 2017 09:46
[2017-05-03 10:07] LABS: HEMATOCRIT 22.7 % (37.0-47.0)
[2017-05-03] MEDS ORDERED: AZITHROMYCIN 500MG/NS (PMX) 250 ML IVPB SCH (14:00)
--- NOTE | 2017-05-03 14:12 | NSTRPT ---
NST Information Datetime Report Generated by CPN: 05/03/2017 14:11 Datetime: 05/01/2017 13:30 NST Information EGA: 40.1 Test Number: 1 Time on Monitor: 05/01/2017 14:06 Time off Monitor: 05/01/2017 14:33 NST Duration (Min): 27 Reason for NST: Other Reason for NST Other: Post Dates Test and Monitor Explained: Monitor Explained; Test Explained; Verbalized Understanding Pulse: 107 Resp: 17 SBP: 117 DBP: 75 Test Evaluation NST Interventions: Reposition Patient Patient States Movement: Present Contraction Frequency: NONE FHR Baseline : 150 Variability: Moderate 6-25bpm Accelerations: 15X15 Decelerations: None FHR Category: Category I NST Results: Reactive Comments: To u/s, FÉLIX 11.5cm, cephalic Electronically Signed By E-Signature: with User ID: [id number]
[2017-05-03 16:25] VITALS: BP 100/70; RESP 14
[2017-05-03] MEDS: GUAIFENESIN/DM 5ML CUP PO PRN (18:16)
[2017-05-03 19:30] VITALS: BP 102/73; PULSE 110; RESP 18
[2017-05-04] VITALS: BP 98/58; PULSE 96; RESP 18
[2017-05-04] MEDS: LACTATED RINGER'S 1,000 ML IV* SCH ×3 (00:56→16:56)
[2017-05-04] MEDS: IBUPROFEN 600 MG TAB PO SCH ×4 (05:56→23:33)
[2017-05-04] MEDS: GENTAMICIN 80 MG/NS (PMX) 50 ML IVPB SCH ×3 (05:56→21:27)
[2017-05-04] MEDS: GUAIFENESIN/DM 5ML CUP PO PRN ×3 (06:19→20:28)
[2017-05-04] MEDS: CLINDAMYCIN 900 MG/D5W (PMX) 50 ML IVPB SCH ×3 (06:20→22:11)
[2017-05-04 08:08] VITALS: BP 95/55; RESP 18
[2017-05-04] MEDS: SENNA/DOCUSATE NA (8.6MG/50MG) TAB PO SCH ×2 (08:57→20:25)
[2017-05-04] MEDS ORDERED: BENZOCAINE 20% 56 ML SPRAY TOP PRN (09:00)
[2017-05-04 09:21] LABS: BASOPHILS % 0.3 % (0.0-2.0); EOSINOPHILS # 0.1 10^3/ul (0.0-0.5); EOSINOPHILS % 1.6 % (0.0-7.0); HEMATOCRIT 24.6 % (37.0-47.0); HEMOGLOBIN 7.3 g/dl (12.0-16.0); LYMPHOCYTES # 0.9 10^3/ul (0.8-2.9); LYMPHOCYTES % 10.9 % (15.0-51.0); MEAN CORPUSCULAR HEMOGLOBIN 21.7 pg (29.0-33.0); MEAN CORPUSCULAR HGB CONC 29.7 g/dl (32.0-37.0); MEAN PLATELET VOLUME 11.5 fl (7.4-10.4); MONOCYTE # 0.6 10^3/ul (0.3-0.9); NEUTROPHIL # 6.3 10^3/ul (1.6-7.5); NEUTROPHILS % 78.8 % (39.0-77.0); PLATELET COUNT 209 10^3/UL (140-415); RED BLOOD COUNT 3.37 10^6/ul (4.20-5.40); RED CELL DISTRIBUTION WIDTH 17.6 % (11.5-14.5)
--- NOTE | 2017-05-04 16:38 | QN ---
Documentation Comment Post normal vaginal delivery day 1 Afebrile Vital signs are stable Abdomen soft. Uterus firm. Lochia normal. Extremity normal. Ambulation encouraged. ANDERSON RICHARDS MD May 04, 2017 16:38
[2017-05-04 20:00] VITALS: BP 109/74; PULSE 103; RESP 18
[2017-05-05 04:04] VITALS: BP 90/57; PULSE 88; RESP 20
[2017-05-05] MEDS: GENTAMICIN 80 MG/NS (PMX) 50 ML IVPB SCH ×2 (05:12→13:30)
[2017-05-05] MEDS: CLINDAMYCIN 900 MG/D5W (PMX) 50 ML IVPB SCH ×2 (05:44→13:39)
[2017-05-05] MEDS: LANOLIN 7 GM TUBE TOP PRN (05:44)
[2017-05-05] MEDS: IBUPROFEN 600 MG TAB PO SCH ×2 (05:44→11:51)
[2017-05-05] MEDS: GUAIFENESIN/DM 5ML CUP PO PRN ×2 (05:58→13:41)
[2017-05-05 08:00] VITALS: BP 102/63; PULSE 93; RESP 18
[2017-05-05] MEDS: SENNA/DOCUSATE NA (8.6MG/50MG) TAB PO SCH (08:28)
[2017-05-05] MEDS ORDERED: VARICELLA VACCINE LIVE/PF 1,350 UNIT/0.5 ML ML SC* ONE (09:00)
[2017-05-05] MEDS ORDERED: MEASLES,MUMPS,RUBELLA VACCINE INJ SC* ONE (09:00)
[2017-05-05] MEDS ORDERED: DIPHTH/TET/ACEL PERTUSS (ADULT) 0.5 ML VIAL IM* ONE (09:00)
--- NOTE | 2017-05-05 13:46 | PD.PPDC ---
PLATFORM INSPECTOR Discharge Instruction Condition Patient Condition: Good Diet Diet: Resume Regular Diet Activity/Restrictions Activity: Normal Activity May Shower Restrictions: No Exercising No Lifting No Driving No Sexual Activity Nothing in the Vagina No [place] No Tampons, douche Follow-up Follow-up with Physician: 2, Week/Weeks Provider Information: instruction given recommended patient to make appointment to be seen at the clinic in 2 weeks Return to clinic for PLATEN PRESS FEEDER Instructions: Fever greater than 101 Chills Worsening abdominal pain Excessive Vaginal Bleeding More than 2 pads per hour Unable to tolerate diet OB Instructions: Breast Tenderness Depression Blurried Vision Headache ANDERSON RICHARDS MD May 05, 2017 13:46
--- NOTE | 2017-05-05 13:51 | DS ---
Date/Time of Note Date/Time of Note DATE: 05/05/17 TIME: 13:49 Discharge Summary Admission/Discharge Info Admit Date/Time May 02, 2017 at 13:30 Discharge Date/Time May 05, 2017 at 1350 Discharge Diagnosis Was normal vaginal delivery day 2 Patient Condition: Good Procedures Normal vaginal delivery Hx of Present Illness Term in labor Hospital Course Satisfactory uneventful Home Meds Active Scripts Azithromycin* (Zithromax*) 250 Mg Tablet, 250 MG PO .WyattPACK DIRECTED, #6 TAB TAKE 500 MG (2 TABS) THE FIRST DAY THEN 250 MG (1 TAB) DAYS 2-5 Prov:FIORELLA YOU MD 04/15/17 Reported Medications Vits W-Ca,Fe,Fa(<1MG) () 1 Tab Tablet 04/28/10 Follow-up Plan instruction given recommended to make appointment to be seen at the clinic in 2 weeks Primary Care Provider Care Physician No Primary Time spent on discharge: < 30 minutes ANDERSON RICHARDS MD May 05, 2017 13:51
== END 2017-05-05 17:26 | disposition home or self-care (01) | DRG 775 ==
LOC: OBT 13:10 → L-D 13:10 → OBT 13:32 → L-D 18:08 → PP1 05-03 02:50
PROVIDERS: ADMIT Obstetrics & Gynecology; ATTEND Obstetrics & Gynecology
PROC: 10E0XZZ Delivery of Products of Conception, External Approach (ICD-10-PCS; principal; 2017-05-02)
PROC: 0UQMXZZ Repair Vulva, External Approach (ICD-10-PCS; 2017-05-02)
PROC: 3E033VJ Introduction of Other Hormone into Peripheral Vein, Percutaneous Approach (ICD-10-PCS; 2017-05-02)
DX: O48.0 Post-term pregnancy (principal); O70.0 First degree perineal laceration during delivery; Z3A.40 40 weeks gestation of pregnancy; Z37.0 Single live birth
CPT/HCPCS: 62319; 76815; 76818; 80053; 85014; 85018; 85025; 85384; 85610; 85730; 86592; 86885; 86900; 86901; 87070; 87340; 88305; 90715; 90716; 99464; G0463; J0290; J0456; J1580; J2405; J2590; J3010; J7120